=== PATIENT | male | born 1975 | race Two or more races ===

== ENCOUNTER 2018-11-03 14:45 | Emergency (ER) | payer OTHER ==
[2018-11-03 14:51] VITALS: BMI 27.4
--- NOTE | 2018-11-03 15:34 | PDOC ---
History of Present Illness - General Chief Complaint: Blood Pressure Problem Stated Complaint: HYPERTENSION History Source: Patient Exam Limitations: No Limitations - History of Present Illness Initial Comments: 11/03/18 15:29 [id number] with h/o renal transplant in 2011 (compliant on anti-rejection regimen) and HTN (on metoprolol) who p/w occipital headache for the past 3 days which yesterday progressed to diffuse b/l neck pain and L>R jaw pain. He notes he has never had a headache like this before. Took Tylenol at the onset 3 days ago but no medication for this since that time. He has not had any blurry vision, slurred speech, difficulty swallowing, difficulty balancing, vertigo, n/t/w focally f/c/n/v/d/c, chest pain, SOB, abdominal pain, dysuria, or any other symptoms. Had a minor fall down 2 steps about 5 days ago but had no subsequent pain. Has a baseline level of stress unchanged. Past History - Past Medical History Allergies/Adverse Reactions: Allergies Allergy/AdvReac Type Severity Reaction Status Date / Time No Known Allergies Allergy Verified 11/03/18 14:51 Home Medications: Ambulatory Orders Lidocaine Patch Removal [Lidoderm Patch Removal] 1 each MC DAILY@2200 PRN #5 each 11/03/18 COPD: No HTN: Yes - Suicide/Smoking/Psychosocial Hx Smoking History: Never smoked Review of Systems - Review of Systems Able to Perform ROS?: Yes Comments:: GEN: no fever, chills, malaise, generalized weakness, or weight change HEENT: jaw pain, no ear pain, sore throat, vision change, or eye pain CV: no chest pain, palpitations, lightheadedness, syncope, or edema RESP: no cough, wheezing, or SOB GI: no abdominal pain, nausea, vomiting, diarrhea, constipation, or white/black/ bloody stool : no dysuria, hematuria, incontinence, retention, bleeding, or discharge MSK: neck pain, otherwise no back pain, muscle weakness/pain, or joint swelling/ pain NEURO: headache, no seizure, vertigo, numbness, tingling, or focal weakness PSYCH: no substance use, no behavior change SKIN: no jaundice, no rash ROS otherwise negative except as noted in HPI *Physical Exam - Vital Signs Last Vital Signs Temp Pulse Resp BP Pulse Ox 97.7 F 67 18 160/96 100 11/03/18 14:47 11/03/18 14:47 11/03/18 14:47 11/03/18 14:47 11/03/18 14:47 - Physical Exam Comments: 11/03/18 15:49 GENERAL: a bit uncomfortable but otherwise nontoxic and well-appearing, A/Ox4, no distress, answers questions appropriately HEENT: PERRLA, EOMI, moist mucous membranes NECK/BACK: b/l neck spasm L>R without limit in ROM of neck, patient is holding neck still stating that the pain is reproduced with ranging, no midline ttp, no spinal stepoff or deformity, no hematoma, full ROM, neck supple CARDIOVASCULAR: regular rate/rhythm, normal S1S2, no MGR, strong peripheral pulses, capillary refill <2 seconds, extremities wwp, no edema LUNGS/RESPIRATORY: no respiratory distress, CTAB GI/ABDOMEN: symmetric [id number], normoactive BS, soft, no ttp, no midline pulsatile masses : no CVA tenderness EXTREMITIES: no muscle atrophy, no acute deformity SKIN: warm and dry, no pallor, no jaundice, no rash, no bruising, no skin breakdown, no cuts, no lesions NEUROLOGICAL: GCS 15, CN II-XII grossly intact, 5/5 strength proximally and distally, no facial droop Moderate Sedation - Procedure Monitoring Vital Signs: Procedure Monitoring Vital Signs Temperature 97.7 F 11/03/18 14:47 Pulse Rate 67 11/03/18 14:47 Respiratory Rate 18 11/03/18 14:47 Blood Pressure 160/96 11/03/18 14:47 O2 Sat by Pulse Oximetry (%) 100 11/03/18 14:47 Medical Decision Making - Medical Decision Making 11/03/18 15:51 Adult male Pt p/w headache, no reported mechanism for injury, no new red flag symptoms (see HPI). LARRY not worse on awakening in the AM, no B symptoms, trauma, fever, vision loss, syncope, n/t/w focally, sudden onset, etc. Initial Vital Signs Temp Pulse Resp BP Pulse Ox 97.7 F 67 18 160/96 100 11/03/18 14:47 11/03/18 14:47 11/03/18 14:47 11/03/18 14:47 11/03/18 14:47 Exam: As noted in Physical Exam section. Most likely this is tension LARRY versus muscle spasm from recent minor fall or from changing pillows used for sleep. Very unlikely that this is any more serious etiology e.g. ICH, subdural, epidural hematoma as he is neurologically nonfocal and has no significant mechanism for injury, also very unlikely meningitis as the patient is very well appearing and VS wnl, unlikely any type of mass lesion as this is not progressive and no nausea/vomiting. W/U ordered: None TX ordered: Tylenol, lidocaine patch Reassessment: Patient states feels much better, wants to go home, repeat exam benign. DISCHARGE This patient has gotten significant relief of symptoms while in the ED. On last reassessment, vitals are wnl, pain is reasonably controlled, and exam is benign. Workup is not concerning for emergency-level pathology at this time. This patient is appropriate for discharge home w/ close outpatient f/u. He is comfortable with this plan. He will take Tylenol for pain. He will follow up with his primary care provider in the next 1-3 days (referral info given). I have also given referral info for Dr. Graves Specific return precautions are discussed and he will come back to the ER if necessary. *DC/Admit/Observation/Transfer Diagnosis at time of Disposition: Neck pain - Discharge Dispostion Condition at time of disposition: Stable Decision to Admit order: No - Prescriptions Prescriptions: Lidocaine Patch Removal [Lidoderm Patch Removal] 1 each MC DAILY@2200 PRN #5 each PRN Reason: Pain - Referrals Referrals: Nate Graves MD [Staff Physician] - [facility] [place] [Provider Group] - Patient Instructions Additional Instructions: You were seen in the ER for a headache and neck pain. We did an exam, and we did not find any signs of an emergency. Your pain improved with the medications we gave you here in the ER and with the lidocaine patch. After our assessment, we believe you are not having a medical emergency and you are safe to go home. Please take Tylenol for the pain, up to 1000mg every 6 hours maximum. Stay very well-hydrated, and try avoiding foods containing the chemicals tyramine and nitrates (such as chocolate, cheese, and processed meats) because these are associated with migraine-type headaches. Follow up with your primary care provider(s) in the next 1-3 days. We are giving you referral information for our primary care clinic and our best certified hearing instrument dispenser (kidney doctor), Dr. Graves. Call their clinic [facility], tell them you were seen in the ER, and tell them you need an appointment. curb supervisor the lidocaine patches we are sending to your pharmacy and use them as directed if needed for pain. Please come back to the ER at any time, 24 hours a day, for any new or worsening symptoms, like worsening headache, new numbness/tingling, fainting, dizziness, new vision changes, high fever, or other symptoms. If you are having symptoms that make it unsafe to drive, please call 911. - Post Discharge Activity
[2018-11-03] MEDS ORDERED: ACETAMINOPHEN 500 MG TABLET (FP) PO ONE (15:55)
[2018-11-03] MEDS ORDERED: LIDOCAINE 5% TOPICAL PATCH TP ONE (15:55)
[2018-11-03] MEDS ORDERED: ACETAMINOPHEN 325 MG TABLET (FP) ONE (16:03)
[2018-11-03] MEDS ORDERED: LIDOCAINE 5% TOPICAL PATCH ONE (16:03)
--- NOTE | 2018-11-03 16:33 | PDOC ---
Attending Attestation - Resident Resident Name: Aliza Mccollum - ED Attending Attestation I have performed the following: I have examined & evaluated the patient, The case was reviewed & discussed with the resident, I agree w/resident's findings & plan, Exceptions are as noted - Medical Decision Making 11/03/18 16:33 A portion of this note was documented by scribe services under my direction. I have reviewed the details of the note, within reason, and agree with the documentation with the following case summary and management plan written by me. Patient treated in the ED. Nursing notes are reviewed and incorporated into the medical decision-making. Vital signs reviewed. Vital Signs Temp Pulse Resp BP Pulse Ox 97.7 F 69 20 153/102 H 100 11/03/18 14:47 11/03/18 16:13 11/03/18 16:13 11/03/18 16:13 11/03/18 16:13 43-year-old male with history of renal transplant 2012 currently and antirejection medication, hypertension, nephropathy presents with neck stiffness. Patient reported 3 days ago where he thought he may potentially slept wrong. Started feeling neck pain is worse with turning of his head. Notices spasming and is particularly left side of his neck. Reports that the pain radiates to the back and neck and causes headache. No chest pain or shortness of breath. Nonexertional. Not worst headache of life. Patient's rectal exam appears consistent with neck spasm. I am not concerned for intracranial hemorrhage, some regular hemorrhage or meningitis. We'll trial Tylenol and Lidoderm patch. Gentle massaging and supportive care and follow with primary care physician. <Matthew Beyer - Last Filed: 11/03/18 16:33> - HPI HPI: 11/03/18 16:38 The patient is a 43 year old male, with a significant past medical history of renal transplant in 2012 (compliant on anti-rejection regimen) and HTN (on metoprolol) who presents to the emergency department with 3 days of a stabbing headache and stiffness. The patient notes the headache has progressively gotten worse and the pain radiates to his neck and right lower jaw. The patient states his pain is reproducible with movement. The patient notes taking tylenol 3 days ago with no relief. The patient denies fever, chills, nausea, vomit, diarrhea and constipation. The patient denies dysuria, frequency, urgency and hematuria. Allergies: NKDA Past surgical history:Renal Transplant (2012) Social history: None reported PCP: NOT ON STAFF - Physicial Exam PE: 11/03/18 16:40 GENERAL: Awake, alert, and fully oriented, in no acute distress HEAD: No signs of trauma EYES: PERRLA, EOMI, sclera anicteric, conjunctiva clear ENT: Auricles normal inspection, hearing grossly normal, nares patent, oropharynx clear without exudates. Moist mucosa NECK: (+) reproducible L para-cervical muscle tenderness to palpation worse with lateral movement of neck. Normal ROM, supple, no lymphadenopathy, JVD, or masses LUNGS: Breath sounds equal, clear to auscultation bilaterally. No wheezes, and no crackles EXTREMITIES: Normal range of motion, no edema. No clubbing or cyanosis. No cords, erythema, or tenderness NEUROLOGICAL: No C-spine tenderness. Cranial nerves II through XII grossly intact. Normal speech, normal gait SKIN: Warm, Dry, normal turgor, no rashes or lesions noted. ------ <Susi Kraus - Last Filed: 11/03/18 16:45> Attestations - Attestations 11/03/18 16:45 Documentation prepared by Susi Kraus, acting as medical insurance coder for Matthew Beyer MD, <Susi Kraus - Last Filed: 11/03/18 16:45>
[2018-11-03 16:57] VITALS: BP 158/98; PULSE 85; TEMP 98
[2018-11-03] MEDS ORDERED: LIDOCAINE PATCH REMOVAL MC SCH (22:00)
== END 2018-11-03 17:01 | disposition home or self-care (01) ==
LOC: JER 14:45
DX: M62.838 Other muscle spasm (principal); M54.2 Cervicalgia; I10 Essential (primary) hypertension; Z94.0 Kidney transplant status
CPT/HCPCS: 99281-25

== ENCOUNTER 2019-11-12 09:37 | Emergency (ER) | payer OTHER ==
[2019-11-12 09:51] VITALS: BP 133/79; PULSE 66; TEMP 98; BMI 24.3
[2019-11-12] MEDS ORDERED: LIDOCAINE 5% TOPICAL PATCH TP ONE (10:24)
--- NOTE | 2019-11-12 10:24 | PDOC ---
History of Present Illness - General Chief Complaint: Pain Stated Complaint: BACK PAIN Time Seen by Provider: 11/12/19 10:12 History Source: Patient Exam Limitations: No Limitations Past History - Travel Traveled outside of the country in the last 30 days: No Close contact w/someone who was outside of country & ill: No - Past Medical History Allergies/Adverse Reactions: Allergies Allergy/AdvReac Type Severity Reaction Status Date / Time No Known Allergies Allergy Verified 11/12/19 09:45 Home Medications: Ambulatory Orders Lidocaine Patch Removal [Lidoderm Patch Removal] 1 each MC DAILY@2200 PRN #5 each 11/03/18 Acetaminophen [Tylenol -] 1,000 mg PO Q6H #45 tablet 11/12/19 Cyclobenzaprine HCl [Flexeril -] 10 mg PO HS #10 tablet 11/12/19 COPD: No HTN: Yes Other medical history: Kidney Transplant 2011 - Psycho Social/Smoking Cessation Hx Smoking History: Current every day smoker Have you smoked in the past 12 months: Yes Number of Cigarettes Smoked Daily: 10 Information on smoking cessation initiated: Yes Hx Alcohol Use: No Drug/Substance Use Hx: No Review of Systems - Review of Systems Able to Perform ROS?: Yes Comments:: 11/12/19 10:23 CONSTITUTIONAL: Absent: fever, chills, diaphoresis, generalized weakness, malaise, loss of appetite GASTROINTESTINAL: Absent: abdominal pain, abdominal distension, nausea, vomiting, diarrhea, constipation, melena, hematochezia GENITOURINARY: Absent: dysuria, frequency, urgency, hesitancy, hematuria, flank pain, genital pain MUSCULOSKELETAL: Present: L low back pain Absent: arthralgia, joint swelling SKIN: Absent: rash, itching, pallor NEUROLOGIC: Absent: headache, focal weakness or paresthesias, dizziness, unsteady gait, seizure, mental status changes, bladder or bowel incontinence PSYCHIATRIC: Absent: anxiety, depression, suicidal or homicidal ideation, hallucinations. Is the patient limited Irish proficient: No *Physical Exam - Vital Signs Last Vital Signs Temp Pulse Resp BP Pulse Ox 98 F 66 18 133/79 100 11/12/19 09:45 11/12/19 09:45 11/12/19 09:45 11/12/19 09:45 11/12/19 09:45 - Physical Exam 11/12/19 10:23 GENERAL: Well developed, well nourished. Awake and alert. No acute distress. NECK: Supple. Full ROM. No lymphadenopathy. MUSCULOSKELETAL TTP of the L paraspinous muscles, L3-L5, with palpable knot. No midline tenderness. (-) straight leg raise testing. Normal range of motion at all joints. No bony deformities or tenderness. No CVA tenderness. EXTREMITIES: No cyanosis. No clubbing. No edema. No calf tenderness. SKIN: Warm and dry. Normal capillary refill. No rashes. No jaundice. NEUROLOGICAL: Alert, awake, appropriate. Cranial nerves 2-12 intact. No deficits to light touch and temperature in face, upper extremities and lower extremities. No motor deficits in the in face, upper extremities and lower extremities. Normoreflexic in the upper and lower extremities. Normal speech. Toes are down- going bilaterally. Gait is normal without ataxia. PSYCHIATRIC: Cooperative. Good eye contact. Appropriate mood and affect. Medical Decision Making - Medical Decision Making 11/12/19 10:23 The patient is a 44 y/o M with PMH of HTN, kidney transplant in 2011 (compliant with anti rejection regimen), presents to the ER with low back pain starting 4 days ago. He states that he was lifting a heavy object when he felt a pop on the L side of his back. He states that since then the pain has gotten worse. The pain is worse when he moves. He has not taken any medication for the pain. Denies numbness and tingling down the extremities, fever, urinary retention, dysuria, saddle anesthesia, bladder/bowel incontinence. A/P: low back pain. -Pt with TTP of the L paraspinous muscles, L3-L5, with palpable knot consistent with muscle spasm. No midline tenderness. (-) straight leg raise testing. -No trauma, or fever. No saddle anesthesia or bladder/bowel incontinence. No CVA tenderness. -Pt is neurologically intact on exam with no focal findings. -Tylenol, lidocaine patch given with relief of symptoms -DC home. Ortho follow up given for if symptoms do not resolve. -I discussed the physical exam findings, ancillary test results and final diagnoses with the patient. I answered all of the patient's questions. The patient was satisfied with the care received and felt comfortable with the discharge plan and treatment plan. The Patient agrees to follow up with the primary care physician/specialist within 24-72 hours. Return precautions were given. Discharge - Discharge Information Problems reviewed: Yes Clinical Impression/Diagnosis: Low back pain Qualifiers: Chronicity: acute Back pain laterality: bilateral Sciatica presence: with sciatica Sciatica laterality: sciatica of left side Qualified Code(s): M54.42 - Lumbago with sciatica, left side Condition: Stable Disposition: HOME - Admission No - Additional Discharge Information Prescriptions: Acetaminophen [Tylenol -] 1,000 mg PO Q6H #45 tablet Cyclobenzaprine HCl [Flexeril -] 10 mg PO HS #10 tablet - Follow up/Referral Referrals: Kyaw Haskins MD [Staff Physician] - - Patient Discharge Instructions Patient Printed Discharge Instructions: DI for Low Back Pain Additional Instructions: You have low back pain due to a muscle spasm. Your x-ray did not show any abnormalities. Please take Tylenol thousand milligrams every 6 hours not to exceed 4000 mg a day. You were also prescribed Flexeril. Please take this medication every 8 hours for the first day. Then take the medication before you go to bed. Do not drive after taking this medication as it may make you sleepy. You may use warm compresses on your back to help with her symptoms. You may also purchase [id number] lidocaine patches to put on the area. Please follow-up with your primary care doctor. If your symptoms do not resolve in 3-5 days, follow-up with orthopedics. A referral has been provided for you. Return to the emergency department if you have worsening back pain, bladder or bowel incontinence, numbness and tingling in your legs, changes in the way you walk, or any new or worsening symptoms. - Post Discharge Activity Work/Back to School Note: Back to Work
[2019-11-12] MEDS ORDERED: ACETAMINOPHEN 325 MG TABLET (FP) PO ONE (10:26)
[2019-11-12] MEDS ORDERED: ACETAMINOPHEN 325 MG TABLET (FP) ONE (10:54)
[2019-11-12] MEDS ORDERED: LIDOCAINE 5% TOPICAL PATCH ONE (10:54)
== END 2019-11-12 11:16 | disposition home or self-care (01) ==
LOC: JERFT 09:37
DX: M54.42 Lumbago with sciatica, left side (principal); M62.830 Muscle spasm of back; I10 Essential (primary) hypertension; Z94.0 Kidney transplant status
CPT/HCPCS: 72100-TC-FY; 99283-25

== ENCOUNTER 2021-11-06 16:59 | Inpatient (IN) | payer OTHER ==
[2021-11-06 17:11] VITALS: BMI 24.9
[2021-11-06 17:54] LABS: BASO % 0.7 % (0-2.0); EOS % 0.4 % (0-4.5); HEMOGLOBIN 15.6 GM/dL (11.7-16.9); LYMPH % 18.5 % (8-40); MCH 30.8 pg (25.7-33.7); MCHC 34.6 g/dl (32.0-35.9); MEAN CELL VOLUME 88.9 fl (80-96); MEAN PLT VOLUME 7.9 fl (7.5-11.1); MONO % 5.2 % (3.8-10.2); NEUT % 75.2 % (42.8-82.8); PLATELET COUNT 132 10^3/uL (134-434); RBC 5.07 M/mm3 (4.00-5.60); WHITE BLOOD COUNT 9.4 K/mm3 (4.0-10.0)
[2021-11-06 17:59] LABS: INR 0.97 (0.83-1.09); PROTHROMBIN TIME (PATIENT) 11.2 SEC (9.7-13.0)
[2021-11-06 18:14] LABS: ALBUMIN 3.7 g/dl (3.4-5.0); BLOOD UREA NITROGEN 19.1 mg/dL (7-18)
[2021-11-06 18:17] LABS: CREATININE 1.5 mg/dL (0.55-1.3)
[2021-11-06 18:18] LABS: BILIRUBIN,TOTAL 0.4 mg/dL (0.2-1); TOT PROT 6.8 g/dl (6.4-8.2)
[2021-11-06] MEDS ORDERED: ATORVASTATIN CA 80 MG TABLET (FP) PO ONE (18:47)
[2021-11-06] MEDS ORDERED: ASPIRIN 81 MG CHEWABLE TABLETS PO ONE (18:48)
[2021-11-06] MEDS ORDERED: ASPIRIN COATED 81 MG TABLET.EC ONE (19:00)
[2021-11-06] MEDS ORDERED: ATORVASTATIN CA 80 MG TABLET (FP) ONE (19:00)
[2021-11-07 08:56] LABS: PH,URINE 5.5 (5.0-8.0); URINE APPEARANCE CLEAR; URINE BILIRUBIN NEGATIVE (NEGATIVE); URINE COLOR YELLOW; URINE GLUCOSE (UA) NEGATIVE (NEGATIVE); URINE KETONE TRACE (NEGATIVE); URINE LEUK ESTERASE NEGATIVE (NEGATIVE); URINE NITRITE NEGATIVE (NEGATIVE); URINE PROTEIN NEGATIVE (NEGATIVE)
[2021-11-07 09:18] LABS: BASO % 0.6 % (0-2.0); EOS % 0.6 % (0-4.5); HEMATOCRIT 42.6 % (35.4-49); HEMOGLOBIN 14.5 GM/dL (11.7-16.9); LYMPH % 37.8 % (8-40); MCH 30.5 pg (25.7-33.7); MCHC 33.9 g/dl (32.0-35.9); MEAN CELL VOLUME 89.8 fl (80-96); MEAN PLT VOLUME 8.1 fl (7.5-11.1); MONO % 7.2 % (3.8-10.2); NEUT % 53.8 % (42.8-82.8); PLATELET COUNT 129 10^3/uL (134-434); RBC 4.75 M/mm3 (4.00-5.60); RDW 13.9 % (11.9-15.9); WHITE BLOOD COUNT 10.7 K/mm3 (4.0-10.0)
[2021-11-07 09:36] LABS: INR 0.94 (0.83-1.09); PROTHROMBIN TIME (PATIENT) 10.8 SEC (9.7-13.0)
[2021-11-07 09:37] LABS: ACTIVATED PTT 30.1 SECONDS (25.2-36.5)
[2021-11-07 09:51] LABS: ALBUMIN 3.4 g/dl (3.4-5.0); CALCIUM 8.1 mg/dL (8.5-10.1); MAGNESIUM 1.9 mg/dL (1.8-2.4)
[2021-11-07 09:52] LABS: BLOOD UREA NITROGEN 22.9 mg/dL (7-18)
[2021-11-07 09:54] LABS: CREATININE 1.5 mg/dL (0.55-1.3); PHOSPHOROUS 2.9 mg/dL (2.5-4.9)
[2021-11-07 09:56] LABS: TOT PROT 6.4 g/dl (6.4-8.2)
[2021-11-07 09:58] LABS: BILIRUBIN,TOTAL 0.6 mg/dL (0.2-1)
[2021-11-08 03:46] VITALS: TEMP 98.3
[2021-11-08 08:58] LABS: BASO % 0.6 % (0-2.0); EOS % 0.8 % (0-4.5); HEMATOCRIT 46.4 % (35.4-49); HEMOGLOBIN 15.6 GM/dL (11.7-16.9); LYMPH % 31.7 % (8-40); MCH 30.1 pg (25.7-33.7); MCHC 33.5 g/dl (32.0-35.9); MEAN CELL VOLUME 89.9 fl (80-96); MEAN PLT VOLUME 8.2 fl (7.5-11.1); MONO % 7.4 % (3.8-10.2); NEUT % 59.5 % (42.8-82.8); PLATELET COUNT 134 10^3/uL (134-434); RBC 5.16 M/mm3 (4.00-5.60); RDW 14.1 % (11.9-15.9); WHITE BLOOD COUNT 9.9 K/mm3 (4.0-10.0)
[2021-11-08 09:12] LABS: CALCIUM 8.8 mg/dL (8.5-10.1)
[2021-11-08 09:13] LABS: ALBUMIN 3.6 g/dl (3.4-5.0); BLOOD UREA NITROGEN 18.3 mg/dL (7-18)
[2021-11-08 09:16] LABS: CREATININE 1.2 mg/dL (0.55-1.3)
[2021-11-08 09:17] LABS: TOT PROT 6.6 g/dl (6.4-8.2)
[2021-11-08 09:18] LABS: BILIRUBIN,TOTAL 0.8 mg/dL (0.2-1)
[2021-11-08] MEDS ORDERED: ASPIRIN 81 MG CHEWABLE TABLETS PO SCH (10:00)
[2021-11-08] MEDS ORDERED: ENOXAPARIN NA (PORCINE) 40 MG/0.4 ML DISP.SYRIN SQ SCH (10:00)
[2021-11-08 10:08] VITALS: BP 141/90; PULSE 70
[2021-11-08] MEDS ORDERED: ATORVASTATIN CA 80 MG TABLET (FP) PO SCH (22:00)
== END 2021-11-08 10:10 | disposition left against medical advice (07) | DRG 45 ==
LOC: JER 16:59 → JERBED 18:24
PROVIDERS: ADMIT Internal Medicine
DX: I63.9 Cerebral infarction, unspecified (principal); G81.94 Hemiplegia, unspecified affecting left nondominant side; Z94.0 Kidney transplant status; F17.210 Nicotine dependence, cigarettes, uncomplicated; E78.5 Hyperlipidemia, unspecified; R29.701 NIHSS score 1; I12.9 Hypertensive chronic kidney disease with stage 1 through stage 4 chronic kidney disease, or unspecified chronic kidney disease; N18.9 Chronic kidney disease, unspecified; F03.90 Unspecified dementia, unspecified severity, without behavioral disturbance, psychotic disturbance, mood disturbance, and anxiety
CPT/HCPCS: 36415; 70450-TC; 70551-TC; 71045-TC-FY; 80053; 80061; 81003; 82550; 82962; 83036; 83735; 84100; 84443; 84484; 85025; 85610; 85730; 86850; 86900; 86901; 93005; 93010; 93880-TC; 99285-25; C9803; U0003; U0005

== ENCOUNTER 2022-01-01 20:43 | Emergency (ER) | payer OTHER ==
[2022-01-01 20:54] VITALS: TEMP 98.3; BMI 28.0
[2022-01-01] MEDS ORDERED: ACETAMINOPHEN 1000 MG/100 ML BAG IVPB ONE (21:20)
[2022-01-01] MEDS ORDERED: ACETAMINOPHEN INJECTION 100 ML IVPB ONE (21:30)
[2022-01-01] MEDS ORDERED: MAG HYDROX/AL HYDROX/SIMETH 30 ML UNIT-DOSE CUP PO ONE (21:35)
[2022-01-01] MEDS ORDERED: FAMOTIDINE 20 MG/50 ML IVPB 20 MG/50 ML MG IVPB ONE ×2 (21:35→21:41)
[2022-01-01 21:36] LABS: BASO % 0.7 % (0-2.0); EOS % 0.5 % (0-4.5); HEMATOCRIT 48.3 % (35.4-49); HEMOGLOBIN 16.7 GM/dL (11.7-16.9); LYMPH % 25.7 % (8-40); MCH 30.8 pg (25.7-33.7); MCHC 34.5 g/dl (32.0-35.9); MEAN CELL VOLUME 89.3 fl (80-96); MEAN PLT VOLUME 7.6 fl (7.5-11.1); MONO % 5.7 % (3.8-10.2); NEUT % 67.4 % (42.8-82.8); PLATELET COUNT 137 10^3/uL (134-434); RBC 5.42 M/mm3 (4.00-5.60); RDW 13.8 % (11.9-15.9); WHITE BLOOD COUNT 12.7 K/mm3 (4.0-10.0)
[2022-01-01 21:40] LABS: INR 0.95 (0.83-1.09); PROTHROMBIN TIME (PATIENT) 10.9 SEC (9.7-13.0)
[2022-01-01] MEDS ORDERED: MAG HYDROX/AL HYDROX/SIMETH 30 ML UNIT-DOSE CUP ONE (21:41)
[2022-01-01 21:43] LABS: ACTIVATED PTT 36.4 SECONDS (25.2-36.5)
[2022-01-01 21:57] LABS: BLOOD UREA NITROGEN 20.9 mg/dL (7-18); CALCIUM 8.8 mg/dL (8.5-10.1)
[2022-01-01 21:58] LABS: ALBUMIN 3.8 g/dl (3.4-5.0)
[2022-01-01 22:00] LABS: CREATININE 1.4 mg/dL (0.55-1.3)
[2022-01-01 22:02] LABS: BILIRUBIN,TOTAL 0.4 mg/dL (0.2-1); TOT PROT 7.4 g/dl (6.4-8.2)
[2022-01-02] MEDS ORDERED: HEPARIN NA (PORCINE) 5,000 UNITS/ML 1ML VIAL IVPUSH PRN ×2 (01:21)
[2022-01-02] MEDS ORDERED: ASPIRIN 81 MG CHEWABLE TABLETS PO ONE (01:23)
[2022-01-02] MEDS ORDERED: CLOPIDOGREL BISULFATE 300 MG TABLET PO ONE (01:23)
[2022-01-02] MEDS ORDERED: CLOPIDOGREL BISULFATE 300 MG TABLET ONE (01:30)
[2022-01-02] MEDS ORDERED: HEPARIN - 25,000 UNIT in SODIUM CHLORIDE 495 ML IV SCH (01:30)
[2022-01-02] MEDS ORDERED: ASPIRIN 81 MG CHEWABLE TABLETS ONE (01:30)
[2022-01-02] MEDS ORDERED: HEPARIN INFUSION - 25,000 UNITS/500 ML INFUS.BAG IVPB ONE (01:35)
[2022-01-02] MEDS ORDERED: HEPARIN NA (PORCINE) 5,000 UNITS/ML 1ML VIAL ONE (01:35)
[2022-01-02] MEDS ORDERED: HEPARIN INFUSION - 25,000 UNITS/500 ML INFUS.BAG IVPB SCH (01:45)
[2022-01-02 04:13] VITALS: BP 152/100; PULSE 74
== END 2022-01-02 04:20 | disposition short-term general hospital (02) ==
LOC: JER 20:43
PROC: 3E0333Z Introduction of Anti-inflammatory into Peripheral Vein, Percutaneous Approach (ICD-10-PCS; principal; 2022-01-01)
PROC: 3E033GC Introduction of Other Therapeutic Substance into Peripheral Vein, Percutaneous Approach (ICD-10-PCS; 2022-01-01)
PROC: 3E033GC Introduction of Other Therapeutic Substance into Peripheral Vein, Percutaneous Approach (ICD-10-PCS; 2022-01-01)
PROC: 3E033GC Introduction of Other Therapeutic Substance into Peripheral Vein, Percutaneous Approach (ICD-10-PCS; 2022-01-01)
DX: I21.4 Non-ST elevation (NSTEMI) myocardial infarction (principal); R07.9 Chest pain, unspecified
CPT/HCPCS: 36415; 71046-TC-FY; 80053; 83690; 84484; 85025; 85610; 85730; 93005; 93010; 96361; 96374; 96375; 99285-25; C9803-CS; J1644; U0003; U0005

== ENCOUNTER 2024-11-09 10:49 | Observation (INO) | payer OTHER ==
[2024-11-09] MEDS ORDERED: ACETAMINOPHEN INJECTION 100 ML ONE (12:29)
[2024-11-09] MEDS: ACETAMINOPHEN 1000 MG/100 ML BAG IVPB ONE (13:02)
[2024-11-09 13:10] LABS: BASO % 0.5 % (0-2.0); EOS % 0.2 % (0-4.5); HEMATOCRIT 37.6 % (35.4-49); HEMOGLOBIN 12.9 GM/dL (11.7-16.9); LYMPH % 9.2 % (8-40); MCHC 34.3 g/dl (32.0-35.9); MEAN CELL VOLUME 87.5 fl (80-96); MEAN PLT VOLUME 7.7 fl (7.5-11.1); MONO % 7.1 % (3.8-10.2); PLATELET COUNT 215 10^3/uL (134-434); WHITE BLOOD COUNT 15.9 K/mm3 (4.0-10.0)
[2024-11-09 13:12] LABS: VENOUS BASE EXCESS -4.7 mmol/L (-2-2); VENOUS O2 SATURATION 84.1 % (70-80); VENOUS PCO2 31.3 mmHg (38-52); VENOUS PH 7.391 (7.310-7.410)
[2024-11-09 13:32] LABS: CALCIUM 8.6 mg/dL (8.5-10.1)
[2024-11-09 13:33] LABS: ALBUMIN 3.1 g/dl (3.4-5.0); BLOOD UREA NITROGEN 25.7 mg/dL (7-18); MAGNESIUM 1.7 mg/dL (1.8-2.4)
[2024-11-09 13:36] LABS: CREATININE 1.4 mg/dL (0.55-1.3); PHOSPHOROUS 2.8 mg/dL (2.5-4.9)
[2024-11-09 13:37] LABS: BILIRUBIN,TOTAL 0.6 mg/dL (0.2-1)
[2024-11-09 14:27] LABS: HIV INTERPRETATION NEGATIVE (NEGATIVE)
[2024-11-09] MEDS: PIPERACILLIN/TAZOB 4.5 GM 4.5 GM/100 ML BAG IVPB ONE (15:05)
[2024-11-09] MEDS ORDERED: PIPERACILLIN/TAZOB 4.5 GM 4.5 GM/100 ML BAG IVPB ONE (15:27)
[2024-11-09] MEDS: VANCOMYCIN 1 GM PREMIX (F) 1 GM/200 ML BAG IVPB ONE (15:39)
[2024-11-09 16:58] LABS: URIC ACID 7.2 mg/dL (2.6-7.2)
[2024-11-09 17:05] LABS: PH,URINE 5.5 (5.0-8.0); URINE APPEARANCE CLEAR; URINE BILIRUBIN NEGATIVE (NEGATIVE); URINE COLOR YELLOW; URINE GLUCOSE (UA) NEGATIVE (NEGATIVE); URINE KETONE NEGATIVE (NEGATIVE); URINE LEUK ESTERASE NEGATIVE (NEGATIVE); URINE NITRITE NEGATIVE (NEGATIVE); URINE PROTEIN NEGATIVE (NEGATIVE)
[2024-11-09] MEDS: VANCOMYCIN 1,000 MG in DEXTROSE 5%-WATER - 250 ML IVPB ONE (17:34)
[2024-11-09] MEDS: PIPERACILLIN/TAZOB 4.5 GM 4.5 GM in DEXTROSE 5%-WATER - 100 ML IVPB ONE (17:34)
[2024-11-09] MEDS: TACROLIMUS ANHYDROUS 1 MG CAPSULE PO SCH (22:25)
[2024-11-09] MEDS: MYCOPHENOLATE MOFETIL 500 MG TABLET PO SCH (22:26)
[2024-11-09] MEDS: SACUBITRIL/VALSARTAN 24 MG-26 MG TABLET PO SCH (22:26)
[2024-11-09] MEDS: TICAGRELOR 60 MG TABLET PO SCH (22:26)
[2024-11-09] MEDS: METOPROLOL TARTRATE 50 MG TABLET (FP) PO SCH (22:27)
[2024-11-09] MEDS: HEPARIN NA (PORCINE) 5,000 UNITS/ML 1ML VIAL SQ SCH (22:27)
[2024-11-09] MEDS: CEFAZOLIN 2 GM/D5W 2 GM/50 ML ML IVPB SCH (22:27)
[2024-11-10] MEDS: ACETAMINOPHEN 325 MG TABLET (FP) PO PRN (04:13)
[2024-11-10 10:09] LABS: BASO % 0.4 % (0-2.0); EOS % 0.5 % (0-4.5); HEMATOCRIT 33.9 % (35.4-49); HEMOGLOBIN 11.3 GM/dL (11.7-16.9); LYMPH % 19.4 % (8-40); MCH 29.5 pg (25.7-33.7); MCHC 33.4 g/dl (32.0-35.9); MEAN CELL VOLUME 88.3 fl (80-96); MEAN PLT VOLUME 7.5 fl (7.5-11.1); MONO % 9.7 % (3.8-10.2); PLATELET COUNT 206 10^3/uL (134-434); RBC 3.84 M/mm3 (4.00-5.60); RDW 13.6 % (11.9-15.9); WHITE BLOOD COUNT 11.6 K/mm3 (4.0-10.0)
[2024-11-10 10:16] LABS: POTASSIUM 4.4 mmol/L (3.5-5.1)
[2024-11-10 10:20] LABS: CALCIUM 8.8 mg/dL (8.5-10.1)
[2024-11-10 10:21] LABS: BLOOD UREA NITROGEN 23.8 mg/dL (7-18)
[2024-11-10 10:24] LABS: CREATININE 1.3 mg/dL (0.55-1.3)
[2024-11-10] MEDS: ASPIRIN COATED 81 MG TABLET.EC PO SCH (10:25)
[2024-11-10] MEDS: predniSONE 5 MG TABLET (UD) PO SCH (10:25)
[2024-11-10] MEDS: ATORVASTATIN CA 80 MG TABLET (FP) PO SCH (10:26)
[2024-11-10] MEDS: LIDOCAINE 5% TOPICAL PATCH TP SCH (12:01)
[2024-11-10 13:19] VITALS: BMI 24.4
[2024-11-10] MEDS: LIDOCAINE PATCH REMOVAL MC SCH (22:17)
[2024-11-11] MEDS: CEFTRIAXONE 2 GM-D5W BAG 2 GM/50 ML BAG IVPB ONE (07:49)
[2024-11-11 09:48] LABS: BASO % 0.5 % (0-2.0); EOS % 0.5 % (0-4.5); HEMATOCRIT 35.6 % (35.4-49); HEMOGLOBIN 11.8 GM/dL (11.7-16.9); LYMPH % 18.6 % (8-40); MCH 29.2 pg (25.7-33.7); MCHC 33.2 g/dl (32.0-35.9); MEAN CELL VOLUME 87.8 fl (80-96); MEAN PLT VOLUME 7.8 fl (7.5-11.1); MONO % 7.8 % (3.8-10.2); NEUT % 72.6 % (42.8-82.8); PLATELET COUNT 241 10^3/uL (134-434); RBC 4.06 M/mm3 (4.00-5.60); RDW 13.7 % (11.9-15.9); WHITE BLOOD COUNT 11.9 K/mm3 (4.0-10.0)
[2024-11-11 10:10] LABS: POTASSIUM 4.5 mmol/L (3.5-5.1)
[2024-11-11 10:18] LABS: ALBUMIN 2.8 g/dl (3.4-5.0)
[2024-11-11 10:19] LABS: BLOOD UREA NITROGEN 21.2 mg/dL (7-18)
[2024-11-11 10:20] LABS: TOT PROT 6.6 g/dl (6.4-8.2)
[2024-11-11 10:21] LABS: CREATININE 1.1 mg/dL (0.55-1.3)
[2024-11-11 10:23] LABS: CALCIUM 9.1 mg/dL (8.5-10.1)
[2024-11-11] MEDS: AMPICILLIN NA/SULBACTAM NA 3 GM in SODIUM CHLORIDE 100 ML IVPB SCH (10:26)
[2024-11-11 10:28] LABS: MAGNESIUM 1.6 mg/dL (1.8-2.4)
[2024-11-11 10:34] LABS: BILIRUBIN,TOTAL 0.3 mg/dL (0.2-1)
[2024-11-11] MEDS: MAGNESIUM OXIDE 400 MG TABLET (FP) PO ONE (11:42)
[2024-11-12 02:54] VITALS: RESP 18
[2024-11-12] MEDS: LIDOCAINE 4% PATCH TP SCH (09:06)
[2024-11-12 09:16] LABS: BASO % 0.5 % (0-2.0); HEMATOCRIT 34.5 % (35.4-49); HEMOGLOBIN 11.8 GM/dL (11.7-16.9); LYMPH % 22.4 % (8-40); MCH 29.9 pg (25.7-33.7); MCHC 34.2 g/dl (32.0-35.9); MEAN CELL VOLUME 87.5 fl (80-96); MEAN PLT VOLUME 7.7 fl (7.5-11.1); MONO % 8.6 % (3.8-10.2); NEUT % 67.5 % (42.8-82.8); PLATELET COUNT 252 10^3/uL (134-434); RBC 3.94 M/mm3 (4.00-5.60); RDW 13.9 % (11.9-15.9); WHITE BLOOD COUNT 10.2 K/mm3 (4.0-10.0)
[2024-11-12 09:45] LABS: POTASSIUM 4.2 mmol/L (3.5-5.1)
[2024-11-12 10:13] LABS: ALBUMIN 2.8 g/dl (3.4-5.0); BLOOD UREA NITROGEN 19.5 mg/dL (7-18); CALCIUM 9.1 mg/dL (8.5-10.1)
[2024-11-12 10:15] LABS: MAGNESIUM 1.6 mg/dL (1.8-2.4)
[2024-11-12 10:19] LABS: BILIRUBIN,TOTAL 0.4 mg/dL (0.2-1); TOT PROT 6.6 g/dl (6.4-8.2)
[2024-11-12] MEDS: MAGNESIUM 2GM/50ML STERILE WATER IVPB IVPB ONE (12:13)
[2024-11-12 15:42] VITALS: BP 102/63; PULSE 65; TEMP 98.4
== END 2024-11-12 17:27 | disposition home or self-care (01) ==
LOC: JER 10:49 → JERBED 14:49 → J8W 16:34
PROVIDERS: ADMIT Internal Medicine; ATTEND Internal Medicine
PROC: 3E03329 Introduction of Other Anti-infective into Peripheral Vein, Percutaneous Approach (ICD-10-PCS; principal; 2024-11-09)
PROC: 3E033NZ Introduction of Analgesics, Hypnotics, Sedatives into Peripheral Vein, Percutaneous Approach (ICD-10-PCS; 2024-11-09)
PROC: 3E033GC Introduction of Other Therapeutic Substance into Peripheral Vein, Percutaneous Approach (ICD-10-PCS; 2024-11-09)
DX: L03.116 Cellulitis of left lower limb (principal); I11.9 Hypertensive heart disease without heart failure; D72.829 Elevated white blood cell count, unspecified; R78.81 Bacteremia; D64.9 Anemia, unspecified; I25.10 Atherosclerotic heart disease of native coronary artery without angina pectoris; I73.9 Peripheral vascular disease, unspecified; Z94.0 Kidney transplant status; I25.2 Old myocardial infarction; Z95.5 Presence of coronary angioplasty implant and graft; Z86.73 Personal history of transient ischemic attack (TIA), and cerebral infarction without residual deficits
CPT/HCPCS: 36415; 36569; 71045-TC-FY; 73610-TC-LT-FY; 73630-TC-LT; 80048; 80053; 80197; 81003; 82803; 83605; 83735; 84100; 84484; 84550; 85025; 85651; 86140; 86803; 87040; 87186; 87389; 93005; 93010; 93306-TC; 96365; 96367; 96375; 99285-25; G0378; J0131; J1644; J7517

== ENCOUNTER 2024-11-13 14:54 | Day surgery (SDC) | payer OTHER ==
[2024-11-13] MEDS: CEFTRIAXONE 2 GM in DEXTROSE 5%-WATER 100 ML IVPB SCH (15:32)
[2024-11-13 16:56] VITALS: BP 122/81; PULSE 67; RESP 18; TEMP 98.1
== END 2024-11-13 16:57 | disposition home or self-care (01) ==
LOC: FINFUSION 14:54 → FM/S 14:56 → FINFUSION 16:57
PROVIDERS: ATTEND Internal Medicine Infectious Disease
DX: L03.116 Cellulitis of left lower limb (principal)
CPT/HCPCS: 96365

== ENCOUNTER 2024-11-14 14:36 | Day surgery (SDC) | payer OTHER ==
[2024-11-14] MEDS: CEFTRIAXONE 2 GM-D5W BAG 2 GM/50 ML BAG IVPB ONE (14:56)
[2024-11-14] MEDS ORDERED: REFRIGERATED ANITBIOTICS ONE (15:25)
[2024-11-14 16:12] VITALS: BP 105/56; PULSE 60; RESP 18; TEMP 98.4
== END 2024-11-14 16:37 | disposition home or self-care (01) ==
LOC: FINFUSION 14:36 → FM/S 14:37 → FINFUSION 16:37
PROVIDERS: ATTEND Internal Medicine Infectious Disease
DX: L03.116 Cellulitis of left lower limb (principal)
CPT/HCPCS: 96365

== ENCOUNTER 2024-11-15 15:05 | Day surgery (SDC) | payer OTHER ==
[2024-11-15] MEDS ORDERED: CEFTRIAXONE 2 GM-D5W BAG 2 GM/50 ML BAG IVPB SCH (16:15)
[2024-11-15] MEDS: CEFTRIAXONE 2 GM-D5W BAG 2 GM/50 ML BAG IVPB ONE (16:15)
[2024-11-15 16:25] VITALS: RESP 16; TEMP 98.2
[2024-11-15 16:46] VITALS: BP 105/67; PULSE 67
== END 2024-11-15 16:48 | disposition home or self-care (01) ==
LOC: FM/S 15:05 → FINFUSION 15:05
PROVIDERS: ATTEND Internal Medicine Infectious Disease
DX: L03.116 Cellulitis of left lower limb (principal)
CPT/HCPCS: 96365

== ENCOUNTER 2024-11-16 11:11 | Day surgery (SDC) | payer OTHER ==
[2024-11-16] MEDS: CEFTRIAXONE 2 GM in SODIUM CHLORIDE 100 ML IVPB SCH (11:41)
[2024-11-16 13:36] VITALS: BP 115/80; PULSE 74; RESP 16; TEMP 98.1
== END 2024-11-16 12:36 | disposition home or self-care (01) ==
LOC: FINFUSION 11:11 → FM/S 11:12 → FINFUSION 12:36
PROVIDERS: ATTEND Internal Medicine Infectious Disease
DX: L03.116 Cellulitis of left lower limb (principal)
CPT/HCPCS: 96365

== ENCOUNTER 2024-11-17 11:58 | Day surgery (SDC) | payer OTHER ==
[2024-11-17] MEDS: CEFTRIAXONE 2 GM-D5W BAG 2 GM/50 ML BAG IVPB ONE (12:50)
[2024-11-17 14:04] VITALS: BP 112/78; PULSE 68; RESP 16; TEMP 98.4
== END 2024-11-17 13:35 | disposition home or self-care (01) ==
LOC: FINFUSION 11:58 → FM/S 12:01 → FINFUSION 13:35
PROVIDERS: ATTEND Internal Medicine Infectious Disease
DX: L03.116 Cellulitis of left lower limb (principal)
CPT/HCPCS: 96365; 96367

== ENCOUNTER 2024-11-18 11:46 | Day surgery (SDC) | payer OTHER ==
[2024-11-18] MEDS: CEFTRIAXONE 2 GM-D5W BAG 2 GM/50 ML BAG IVPB ONE (13:26)
[2024-11-18 14:29] VITALS: BP 122/78; PULSE 66; RESP 18; TEMP 98.2
[2024-11-18 14:59] LABS: HEMOGLOBIN 12.9 G/dL (11.7-16.9); MCH 30.7 pg (25.7-33.7); MCHC 33.9 g/dl (32.0-35.9); MEAN CELL VOLUME 90.7 fl (80-96); MEAN PLT VOLUME 7.5 fl (7.5-11.1); RBC 4.19 10^6/uL (4.00-5.60); RDW 14.7 % (11.9-15.9); WHITE BLOOD COUNT 12.6 10^3/uL (4.0-10.8)
[2024-11-18 15:37] LABS: ERYTHROCYTE SEDIMENTATION RATE 40 mm/hr (0-10)
== END 2024-11-18 14:30 | disposition home or self-care (01) ==
LOC: FINFUSION 11:46 → FM/S 11:56 → FINFUSION 14:30
PROVIDERS: ATTEND Internal Medicine Infectious Disease
DX: L03.116 Cellulitis of left lower limb (principal)
CPT/HCPCS: 36415; 85027; 85651; 86140; 96365

== ENCOUNTER 2024-11-19 12:00 | Day surgery (SDC) | payer OTHER ==
[2024-11-19] MEDS: CEFTRIAXONE 2 GM-D5W BAG 2 GM/50 ML BAG IVPB ONE (12:34)
[2024-11-19 12:47] VITALS: RESP 16; TEMP 98.1
[2024-11-19 13:14] VITALS: BP 111/74; PULSE 76
== END 2024-11-19 13:15 | disposition home or self-care (01) ==
LOC: FINFUSION 12:00 → FM/S 12:00 → FINFUSION 13:15
PROVIDERS: ATTEND Internal Medicine Infectious Disease
DX: L03.116 Cellulitis of left lower limb (principal)
CPT/HCPCS: 96365

== ENCOUNTER 2024-11-20 12:18 | Day surgery (SDC) | payer OTHER ==
[2024-11-20] MEDS: CEFTRIAXONE 2 GM-D5W BAG 2 GM/50 ML BAG IVPB ONE (12:35)
[2024-11-20 13:12] VITALS: BP 109/84; PULSE 70; RESP 19; TEMP 97.7
== END 2024-11-20 13:10 | disposition home or self-care (01) ==
LOC: FINFUSION 12:18 → FM/S 12:19 → FINFUSION 13:10
PROVIDERS: ATTEND Internal Medicine Infectious Disease
DX: L03.116 Cellulitis of left lower limb (principal)
CPT/HCPCS: 96365

== ENCOUNTER 2024-11-21 12:11 | Day surgery (SDC) | payer OTHER ==
[2024-11-21] MEDS: CEFTRIAXONE 2 GM-D5W BAG 2 GM/50 ML BAG IVPB ONE (12:26)
[2024-11-21 12:49] VITALS: BP 117/77; TEMP 98.2
[2024-11-21 13:43] VITALS: PULSE 67; RESP 18
== END 2024-11-21 13:44 | disposition home or self-care (01) ==
LOC: FM/S 12:11 → FINFUSION 12:11
PROVIDERS: ATTEND Internal Medicine Infectious Disease
DX: L03.116 Cellulitis of left lower limb (principal)
CPT/HCPCS: 96365

== ENCOUNTER 2024-11-22 13:12 | Day surgery (SDC) | payer OTHER ==
[2024-11-22] MEDS: CEFTRIAXONE 2 GM-D5W BAG 2 GM/50 ML BAG IVPB ONE (13:59)
[2024-11-22 14:57] VITALS: BP 113/72; PULSE 68; RESP 18; TEMP 98.1
== END 2024-11-22 14:53 | disposition home or self-care (01) ==
LOC: FINFUSION 13:12 → FM/S 13:33 → FINFUSION 14:53
PROVIDERS: ATTEND Internal Medicine Infectious Disease
DX: L03.116 Cellulitis of left lower limb (principal)
CPT/HCPCS: 96365

== ENCOUNTER 2024-11-23 13:19 | Day surgery (SDC) | payer OTHER ==
[2024-11-23] MEDS: CEFTRIAXONE 2 GM in SODIUM CHLORIDE 100 ML IVPB SCH (13:49)
[2024-11-23 15:06] VITALS: BP 116/70; PULSE 68; RESP 18; TEMP 98.4
== END 2024-11-23 14:45 | disposition home or self-care (01) ==
LOC: FINFUSION 13:19 → FM/S 13:19 → FINFUSION 14:45
PROVIDERS: ATTEND Internal Medicine Infectious Disease
DX: L03.116 Cellulitis of left lower limb (principal)
CPT/HCPCS: 96365

== ENCOUNTER 2024-11-24 12:43 | Day surgery (SDC) | payer OTHER ==
[2024-11-24] MEDS: CEFTRIAXONE 2 GM-D5W BAG 2 GM/50 ML BAG IVPB ONE (13:08)
[2024-11-24 14:48] VITALS: BP 130/80; PULSE 69; RESP 18; TEMP 98.8
== END 2024-11-24 14:49 | disposition home or self-care (01) ==
LOC: FINFUSION 12:43 → FM/S 12:44 → FINFUSION 14:49
PROVIDERS: ATTEND Internal Medicine Infectious Disease
DX: L03.116 Cellulitis of left lower limb (principal)
CPT/HCPCS: 96365

== ENCOUNTER 2024-11-25 13:05 | Day surgery (SDC) | payer OTHER ==
[2024-11-25] MEDS: CEFTRIAXONE 2 GM-D5W BAG 2 GM/50 ML BAG IVPB ONE (13:30)
[2024-11-25 13:41] VITALS: RESP 16; TEMP 98.1
[2024-11-25 15:08] VITALS: BP 101/65; PULSE 62
[2024-11-25 15:19] LABS: HEMATOCRIT 39.7 % (35.4-49); HEMOGLOBIN 13.5 GM/dL (11.7-16.9); MEAN CELL VOLUME 88.3 fl (80-96); MEAN PLT VOLUME 7.3 fl (7.5-11.1); PLATELET COUNT 215 10^3/uL (134-434); RDW 14.4 % (11.9-15.9); WHITE BLOOD COUNT 10.5 K/mm3 (4.0-10.0)
[2024-11-25 16:05] LABS: ERYTHROCYTE SEDIMENTATION RATE 28 mm/hr (0-10)
== END 2024-11-25 15:08 | disposition home or self-care (01) ==
LOC: FINFUSION 13:05 → FM/S 13:09 → FINFUSION 15:08
PROVIDERS: ATTEND Internal Medicine Infectious Disease
DX: L03.116 Cellulitis of left lower limb (principal)
CPT/HCPCS: 36415; 85027; 85651; 86140; 96365